=== PATIENT | female | born 1985 | race Caucasian/White ===

== ENCOUNTER → 2017-06-16 | Outpatient (CLI) | payer BC ==
[2017-06-16 14:18] LABS: T4 FREE 0.91 ng/dL (0.76-1.46)
[2017-06-16 14:53] LABS: HEPATITIS B SURFACE ANTIGEN NEGATIVE
[2017-06-20 09:06] LABS: HGB A 97.3 % (96.4-98.8); HGB A2 2.7 % (1.8-3.2); HGB SOLUBILITY Negative (Negative)
[2017-06-20 10:08] LABS: VITAMIN D 1-25 DIHYDROXY 59.7 pg/mL (19.9-79.3)
== END | disposition home or self-care (01) ==
LOC: OR 13:06
PROVIDERS: ATTEND Obstetrics & Gynecology Obstetrics
DX: Z34.00 Encounter for supervision of normal first pregnancy, unspecified trimester (principal); Z3A.00 Weeks of gestation of pregnancy not specified
CPT/HCPCS: 36415; 82652; 82947; 83021; 83036; 84439; 85660; 86592; 86803; 87077; 87086; 87186; 87340

== ENCOUNTER → 2017-07-21 | Outpatient (CLI) | payer BC | END | disposition home or self-care (01) | LOC: LABT 16:03 | PROVIDERS: ATTEND Obstetrics & Gynecology Obstetrics | DX: Z34.80 Encounter for supervision of other normal pregnancy, unspecified trimester (principal); Z3A.00 Weeks of gestation of pregnancy not specified | CPT/HCPCS: 86304 ==

== ENCOUNTER → 2017-08-04 | Outpatient (CLI) | payer BC | LOC: LAB 11:25 | PROVIDERS: ATTEND Obstetrics & Gynecology Maternal & Fetal Medicine | DX: O35.2XX1 Maternal care for (suspected) hereditary disease in fetus, fetus 1 (principal); O26.892 Other specified pregnancy related conditions, second trimester; Z3A.00 Weeks of gestation of pregnancy not specified | CPT/HCPCS: 87186 ==

== ENCOUNTER → 2017-11-11 | Outpatient (CLI) | payer BC ==
[2017-11-11 08:07] LABS: HEMATOCRIT 32.8 % (36.0-48.0); HEMOGLOBIN 11.8 g/dL (12.0-16.0)
== END | disposition home or self-care (01) ==
LOC: LAB 07:35
PROVIDERS: ATTEND Obstetrics & Gynecology Obstetrics
DX: Z13.1 Encounter for screening for diabetes mellitus (principal)
CPT/HCPCS: 36415; 82947; 82950; 85014; 85018

== ENCOUNTER 2018-01-09 15:57 | Observation (INO) | payer BC ==
[~2018-01-09] VITALS: Ht 165.1 cm; Wt 69.9 kg
[2018-01-09] MEDS ORDERED: PREN-142 PO (18:13)
== END 2018-01-09 18:20 | disposition home or self-care (01) ==
LOC: L&D 15:57
PROVIDERS: ADMIT Obstetrics & Gynecology Obstetrics; ATTEND Obstetrics & Gynecology Obstetrics
DX: Z34.93 Encounter for supervision of normal pregnancy, unspecified, third trimester (principal); Z3A.36 36 weeks gestation of pregnancy
CPT/HCPCS: 59025; 76815; 76818; G0378

== ENCOUNTER 2018-01-18 14:20 | Observation (INO) | payer BC ==
[~2018-01-18] VITALS: Ht 165.1 cm; Wt 73.5 kg
[~2018-01-18 14:20] MED LIST: PREN-142 PO
== END 2018-01-18 15:15 | disposition home or self-care (01) ==
LOC: L&D 14:21
PROVIDERS: ADMIT Obstetrics & Gynecology Obstetrics; ATTEND Obstetrics & Gynecology Obstetrics
DX: O26.893 Other specified pregnancy related conditions, third trimester (principal); R10.30 Lower abdominal pain, unspecified; Z3A.37 37 weeks gestation of pregnancy
CPT/HCPCS: 59025; 99281; G0378

== ENCOUNTER 2018-01-20 02:29 | Observation (INO) | payer BC ==
[~2018-01-20] VITALS: Ht 165.1 cm; Wt 73.5 kg
[2018-01-20] MEDS: DEXT 5%/LACTATED RINGERS 1,000 ML IV SCH ×2 (04:30→06:49)
== END 2018-01-20 08:45 | disposition home or self-care (01) ==
LOC: L&D 02:29
PROVIDERS: ADMIT Obstetrics & Gynecology Obstetrics; ATTEND Obstetrics & Gynecology Obstetrics
DX: O62.9 Abnormality of forces of labor, unspecified (principal); Z3A.38 38 weeks gestation of pregnancy
CPT/HCPCS: 76815; 76818; G0378; 99281

== ENCOUNTER 2018-01-20 11:58 | Inpatient (IN) | payer BC ==
[~2018-01-20] VITALS: Ht 165.1 cm; Wt 73.5 kg
[2018-01-20] MEDS ORDERED: DEXT 5%/LR + PITOCIN 20UNITS/L 1,000 ML IV SCH (14:07)
[2018-01-20] MEDS ORDERED: MISOPROSTOL 100MCG TABLET VG SCH (14:15)
[2018-01-20] MEDS ORDERED: NALOXONE HCL 0.4 MG/ML 1ML VIAL IM PRN (14:15)
[2018-01-20] MEDS ORDERED: PENICILLIN G POTASSIUM 5 MMU in DEXT 5% WATER 100 ML IV NR (14:15)
[2018-01-20] MEDS ORDERED: LIDOCAINE HCL 1% 20ML VIAL (Pyxis) INJ INFIL SCH (14:15)
[2018-01-20] MEDS ORDERED: CARBOPROST TROMETHAMINE 250 MCG/ML AMPUL IM PRN (14:15)
[2018-01-20] MEDS ORDERED: METHYLERGONOVINE MALEATE 0.2 MG/ML IM PRN (14:15)
[2018-01-20] MEDS: LACTATED RINGERS 1,000 ML IV SCH ×3 (14:43→22:30)
[2018-01-20] MEDS: BUTORPHANOL TARTRATE 2 MG/ML VIAL IV PRN ×2 (15:04→19:36)
[2018-01-20 15:24] LABS: BASOPHILS % 0.4 % (0.0-2.0); EOSINOPHILS % 0.7 % (0.0-5.0); HEMATOCRIT. 31.4 % (36.0-48.0); HEMOGLOBIN. 10.9 g/dL (12.0-16.0); LYMPHOCYTES % 13.2 % (20.0-50.0); MEAN CORPUSCULAR HEMOGLOBIN 29.1 pg (28.0-32.0); MEAN CORPUSCULAR VOLUME 84.3 fL (81.0-99.0); MEAN PLATELET VOLUME 8.6 fl (7.4-10.4); MONOCYTES % 6.7 % (2.0-8.0); PLATELET 207 x1000/uL (130-400); RED BLOOD CELL COUNT 3.73 mill/uL (4.2-5.4); RED CELL DISTRIBUTION WIDTH 13.6 % (11.6-14.6)
[2018-01-20 15:32] LABS: INR 0.9; PARTIAL THROMBOPLASTIN TIME 24.1 sec (23.4-31.0); PROTHROMBIN TIME 9.3 sec (9.1-11.1)
[2018-01-20 16:04] LABS: HEPATITIS B SURFACE ANTIGEN NEGATIVE
[2018-01-20] MEDS ORDERED: BUPIVACAINE HCL/NS/PF EPIDURAL 100 ML EP ONE (21:13)
[2018-01-20] MEDS ORDERED: SODIUM CHLORIDE 0.9% 10ML VIAL ONE (21:13)
[2018-01-20] MEDS ORDERED: LIDOCAINE HCL/PF 1% 10 MG/ML 5ML VIAL ONE (21:13)
[2018-01-20] MEDS ORDERED: FENTANYL CITRATE/PF 50MCG/ML 2ML VIAL ONE ×2 (21:14→23:28)
[2018-01-20] MEDS ORDERED: BUPIVACAINE HCL/PF 0.25% (2.5MG/ML) 10ML ONE (23:14)
[2018-01-21] MEDS: PENICILLIN G POTASSIUM 2.5 MMU in DEXTROSE 5% WATER 50 ML IV SCH ×2 (01:33→05:36)
[2018-01-21] MEDS: LACTATED RINGERS 1,000 ML IV SCH (01:33)
[2018-01-21] MEDS ORDERED: METHYLERGONOVINE MALEATE 0.2 MG/ML IM PRN (08:45)
[2018-01-21] MEDS ORDERED: OXYCODONE HCL/ACETAMINOPHEN 5/325MG TABLET PO PRN ×2 (08:45)
[2018-01-21] MEDS ORDERED: RHO(D) IMMUNE GLOBULIN 300 MCG/SYR IM PRN (08:45)
[2018-01-21] MEDS ORDERED: LANOLIN OINT 0.25 GM TUBE TOP PRN (08:45)
[2018-01-21 12:00] VITALS: BP 134/73
[2018-01-21] MEDS: BENZOCAINE/LANOLIN/ALOE VERA SPRAY TOP PRN (12:45)
[2018-01-21 17:00] VITALS: BP 138/79
[2018-01-21 20:00] VITALS: BP 126/79
[2018-01-21] MEDS: DOCUSATE SODIUM 250MG CAPSULE PO SCH (20:58)
[2018-01-22] MEDS: IBUPROFEN 400MG TABLET PO PRN ×2 (00:08→09:30)
[2018-01-22 08:09] LABS: BASOPHILS % 0.4 % (0.0-2.0); EOSINOPHILS % 0.7 % (0.0-5.0); HEMATOCRIT. 31.1 % (36.0-48.0); HEMOGLOBIN. 10.6 g/dL (12.0-16.0); LYMPHOCYTES % 14.7 % (20.0-50.0); MEAN CORPUSCULAR HEMOGLOBIN 29.1 pg (28.0-32.0); MEAN CORPUSCULAR VOLUME 85.4 fL (81.0-99.0); MEAN PLATELET VOLUME 8.6 fl (7.4-10.4); MONOCYTES % 6.4 % (2.0-8.0); NEUTROPHILS % 77.8 % (40.0-76.0); PLATELET 217 x1000/uL (130-400); RED BLOOD CELL COUNT 3.64 mill/uL (4.2-5.4); RED CELL DISTRIBUTION WIDTH 13.7 % (11.6-14.6)
[2018-01-22 08:53] VITALS: BP 133/84
[2018-01-22] MEDS: BENZOCAINE/LANOLIN/ALOE VERA SPRAY TOP PRN (09:30)
[2018-01-22 16:00] VITALS: BP 134/89
[2018-01-22] MEDS: IBUPROFEN 800MG TABLET PO PRN ×2 (16:42→23:55)
[2018-01-22] MEDS: FERROUS SULFATE 325MG TABLET PO SCH ×2 (16:42→17:00)
[2018-01-22 19:46] VITALS: BP 125/74
[2018-01-22] MEDS: DOCUSATE SODIUM 250MG CAPSULE PO SCH (20:58)
[2018-01-23 04:00] VITALS: BP 118/63
[2018-01-23 05:48] VITALS: BP 125/74
[2018-01-23 07:30] VITALS: BP 123/80
[2018-01-23] MEDS: FERROUS SULFATE 325MG TABLET PO SCH (08:41)
== END 2018-01-23 10:25 | disposition home or self-care (01) | DRG 807 ==
LOC: L&D 11:58 → OBSVTOIN 11:58 → 7EST PP/OB 01-21 12:38
PROVIDERS: ADMIT Obstetrics & Gynecology Obstetrics; ATTEND Obstetrics & Gynecology Obstetrics
PROC: 0W8NXZZ Division of Female Perineum, External Approach (ICD-10-PCS; 2018-01-21)
PROC: 3E0R3BZ Introduction of Anesthetic Agent into Spinal Canal, Percutaneous Approach (ICD-10-PCS; 2018-01-21)
PROC: 00HU33Z Insertion of Infusion Device into Spinal Canal, Percutaneous Approach (ICD-10-PCS; 2018-01-21)
PROC: 10E0XZZ Delivery of Products of Conception, External Approach (ICD-10-PCS; principal; 2018-01-21 08:03)
PROC: 30233S1 Transfusion of Nonautologous Globulin into Peripheral Vein, Percutaneous Approach (ICD-10-PCS; 2018-01-23)
DX: O99.824 Streptococcus B carrier state complicating childbirth (principal); Z37.0 Single live birth; O99.02 Anemia complicating childbirth; D64.9 Anemia, unspecified; Z3A.38 38 weeks gestation of pregnancy
CPT/HCPCS: 36415; 86592; 86703; 86762; 86850; 86870; 86886; 86900; 87340; 90384; 96360; 96361; 99281; A4216; J0595; J2540; J2590; J3010; J3490; J7060; J7120; A4315

== ENCOUNTER → 2018-04-18 | Outpatient (CLI) | payer BC | END | disposition home or self-care (01) | LOC: US 13:46 | PROVIDERS: ATTEND Obstetrics & Gynecology Obstetrics | DX: N83.202 Unspecified ovarian cyst, left side (principal) | CPT/HCPCS: 76830; 76856 ==